=== PATIENT | male | born 1975 ===

== ENCOUNTER 2023-07-20 13:20 | Outpatient (AMB) | payer OTHER, SELFPAY ==
--- NOTE | 2023-07-20 13:25 | HO.SPINEOV ---
Intake Intake Visit Reasons: neck discomfort Intake Note: Mr. Corbett is here today c/o recurrent neck pain. Hx of ACDF 05/29/[address] Jones. No new imaging since 01/2022. Product Grader Required: No Allergies aspirin [ASPIRIN] Allergy (Unknown, Verified 07/20/23 13:33) SWELLING ibuprofen [IBUPROFEN] Allergy (Unknown, Verified 07/20/23 13:33) SWELLING Assessment & Plan Assessment & Plan (1) Cervical radiculopathy: Code(s): M54.12 - Radiculopathy, cervical region Plan HPI: Roberto is a pleasant 48 y/o male who comes in today with a a CC of neck pain. He is known to our service and had a C6-7 ACDF completed in 2019 at [facility]. He reports that he has had continued neck pain since then. He states that he felt as though his symptoms had resolved until about 6 months ago when he began trying to exercise at the gym again and felt his left-sided radiculopathy return. When describing his radiation of symptoms he states the pain starts in his neck shoots down his left arm diffusely on terminates in his left 4th and 5th phalanges (h). He states he can not identify an inciting incident that specifically cause this pain to a rise again 6 months ago, but correlates it with his return to exercise. Of note he works as a licensed aircraft maintenance engineer in the [employer] and has to work overhead most of the day. He states that his current symptoms are very similar to those that he had prior to his initial surgery. Of note he also reports continued progressive weakness in his left arm, and feels as though he gets weaker as time goes on. Exam: On examination today he has noticeable triceps atrophy on the left arm when compared to the right. In regards to his left upper extremity his strength is 4/5 in his deltoid, triceps & biceps and 5/5 with wrist flexion / extension and interossei. His right upper extremity and his bilateral lower extremities are 5/5 strength. His sensation is grossly intact. His reflexes are 2+ intact. (-) Gonzalez's bilaterally, (-) clonus bilaterally, (-) straight leg raise bilaterally. Patient is able to ambulate well and rises from a seated position without difficulty. Imaging: MRI imaging could not be reviewed as I have no access to [facility] records, and the patient did not bring his MRI disc. The MRI is 2 years old and already was reviewed by [facility]UY[facility] Sage as evidenced by previous records at [facility]. Plan: The patient is suffering from continued and reportedly progressive weakness in his left upper extremity. It is now to the point where he has difficulty completing his daily tasks at work in the [employer]. He came in today extremely concerned that he needed to take a PT test soon and feels as though he does not have the ability to pass this test given his continued weakness. After his examination I completed his PT test exemption form, stating that he was being worked up for cervical spine pathology and will have a MRI ordered to rule out further nerve root impingement. Total amount of time spent in this visit was 32 minutes in discussion of symptoms, MRI imaging results and subsequent plan of care. Miguel Ángel Jones MD,PhD [facility] Orders: Orders XR cervical spine 4V 07/20/23 M54.12 - Radiculopathy, cervical region MR cervical spine wo con Today M54.12 - Radiculopathy, cervical region Coding Level of Care Code Est Pt Level 4 (01513) Diagnoses Cervical radiculopathy M54.12 Time Spent (min) 32
== END 2023-07-20 14:02 | disposition home or self-care (01) ==
PROVIDERS: PCP Internal Medicine; Visit Provider Physician Assistant
DX: M54.12 Radiculopathy, cervical region (principal)
CPT/HCPCS: 99214

== ENCOUNTER 2023-07-20 13:20 | Outpatient (REF) | payer OTHER, SELFPAY ==
--- NOTE | ~2023-07-20 | XR_ITS ---
EXAMINATION: XR CERVICAL SPINE CLINICAL INFORMATION: Radiculopathy COMPARISON: None available. TECHNIQUE: 5 views of the cervical spine were obtained. FINDINGS: Normal alignment of the cervical spine. No change in alignment with flexion or extension positioning Cervical vertebral body heights are maintained. Patient is status post anterior fusion of C6 on C7. Unremarkable hardware. Other disc spaces are relatively well-maintained. Small to moderate-sized osteophytes are noted within the mid to lower cervical spine. No prevertebral soft tissue swelling. Visualized lung apices are well aerated. XR/XR cervical spine 4V IMPRESSION: 1. Postsurgical changes of the cervical spine. 2. No radiographic evidence of instability.
== END 2023-07-20 13:21 | disposition home or self-care (01) ==
LOC: HO.HOSX 13:20
PROVIDERS: PCP Internal Medicine; Visit Provider Physician Assistant
DX: M54.12 Radiculopathy, cervical region (principal)
CPT/HCPCS: 72050; 99212

== ENCOUNTER 2023-08-04 15:03 | Outpatient (REF) | payer OTHER, SELFPAY ==
--- NOTE | ~2023-08-04 | MR_ITS ---
EXAMINATION: MR CERVICAL SPINE WITHOUT CONTRAST CLINICAL INFORMATION: Cervical radiculopathy. COMPARISON: Cervical spine radiographs from 07/20/2023. TECHNIQUE: MRI of the cervical spine was obtained using routine sequences without contrast. FINDINGS: Interbody fusion device in place at C6-C7. Straightening of the normal cervical lordosis. There is advanced degenerative disc disease at C4-C5. There is moderate degenerative disc disease at all additional levels from C2-C6. Associated mixed Modic type discogenic and plate changes including Modic type I discogenic edema from C5-C7. There is mild marrow edema within the atlantoaxial articulations. No additional suspicious marrow edema. The vertebral body heights are well-maintained. There is T2 hyperintensity centrally within the cord at the level of C5-C6 associated with mild cord atrophy. No additional spinal cord signal abnormalities. Limited evaluation of the soft tissues of the neck without demonstrated abnormalities. The flow voids of the major cervical vessels are maintained. Normal appearance of the cervicomedullary junction and visualized posterior fossa. SPINAL LEVELS: C2-C3: Mild disc-osteophyte complex. There is no uncovertebral joint arthropathy. There is mild left and no right facet joint arthropathy. There is no neural foraminal stenosis. There is no spinal canal stenosis. C3-C4: Mild disc-osteophyte complex. There is moderate to severe left and moderate right uncovertebral joint arthropathy. There is mild bilateral facet joint arthropathy. There is severe left and moderate right neural foraminal stenosis. There is moderate spinal canal stenosis. C4-C5: Moderate disc-osteophyte complex eccentric to the left. There is severe left and moderate right uncovertebral joint arthropathy. There is moderate right worse than left facet joint arthropathy. There is severe left and moderate right neural foraminal stenosis. There is moderate to severe spinal canal stenosis. C5-C6: Prominent disc-osteophyte complex. There is severe right worse than left uncovertebral joint arthropathy. There is moderate bilateral facet joint arthropathy. There is severe right and moderate left neural foraminal stenosis. There is moderate to severe spinal canal stenosis. C6-C7: Fused at this level. There is moderate left and mild right uncovertebral joint arthropathy. There is mild to moderate bilateral facet joint arthropathy. There is moderate to severe left and mild to moderate right neural foraminal stenosis. There is mild spinal canal stenosis. C7-T1: Normal annular contour. There is mild left and no right uncovertebral joint arthropathy. There is no facet joint arthropathy. There is no neural foraminal stenosis. There is no spinal canal stenosis. MR/MR cervical spine wo con IMPRESSION: Interbody fusion device in place at C6-C7. Moderate to advanced multilevel degenerative spondyloarthropathy of the cervical spine as described in detail above. Most notably, there are moderate to severe spinal canal stenoses at C4-C5 and C5-C6. Moderate spinal canal stenosis at C3-C4. Mild spinal canal stenosis at C6-C7. Moderate to severe neural foraminal stenoses from C3-C7. There is T2 hyperintensity centrally within the cord at the level of C5-C6 associated with mild cord atrophy consistent with myelomalacia.
== END 2023-08-04 15:04 | disposition home or self-care (01) ==
LOC: HO.MRI 15:03
PROVIDERS: PCP Internal Medicine; Visit Provider Physician Assistant
DX: M54.12 Radiculopathy, cervical region (principal)
CPT/HCPCS: 72141

== ENCOUNTER 2023-08-25 08:10 | Outpatient (REF) | payer OTHER, SELFPAY ==
--- NOTE | 2023-08-25 | EMG_ITS ---
Left median and ulnar motor and sensory studies were performed. Left superficial radial and medial and lateral antecubital brachial sensory studies were performed. Paraspinal muscles were tested with a needle. IMPRESSION: 1. 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 2. Mild left ulnar neuropathy across the cubital tunnel. MD TING Noel/DEBO / [id number]
== END 2023-08-25 08:11 | disposition home or self-care (01) ==
LOC: HO.NEURO 08:10
PROVIDERS: PCP Internal Medicine; Visit Provider Physician Assistant
DX: M54.12 Radiculopathy, cervical region (principal)
CPT/HCPCS: 95886; 95910

== ENCOUNTER 2023-09-07 14:41 | Outpatient (AMB) | payer OTHER, SELFPAY ==
--- NOTE | 2023-09-07 15:05 | HO.SPINEOV ---
Intake Intake Visit Reasons: F/u EMG Intake Note: Mr. Corbett is here today to F/u on EMG Juvenile Corrections Officer Required: No Allergies aspirin [ASPIRIN] Allergy (Unknown, Verified 07/20/23 13:33) SWELLING ibuprofen [IBUPROFEN] Allergy (Unknown, Verified 07/20/23 13:33) SWELLING Assessment & Plan Assessment & Plan (1) Ulnar nerve entrapment at elbow: Code(s): G56.20 - Lesion of ulnar nerve, unspecified upper limb (2) Degenerative cervical spinal stenosis: Code(s): M48.02 - Spinal stenosis, cervical region Plan Dear colleague, On 09/07/2023 I saw Roberto Corbett. He was recently seen by my PA ordered an EMG of the upper extremities. In summary, the patient previously had an anterior diskectomy fusion done C6-7 for left-sided arm pain and weakness. He returned with complaints of numbness in his 4th and 5th digit on the left side, triceps atrophy and right-sided neck pain when turning his neck. The EMG shows moderate ulnar nerve compression and mild median nerve compression. A repeat MRI of the cervical spine is basically unchanged from 2021 with again showing mild myelomalacia behind C5-C6.. On exam there are no signs of cervical myelopathy. There is significant atrophy of the triceps. I explained to the patient that the triceps atrophy is the result of his original left C7 nerve compression for which he underwent surgery. Secondly, he most likely suffers from an ulnar neuropathy. Thirdly, I would not offer him any cervical intervention at this time in the absence of signs of cervical myelopathy despite the significant multilevel stenosis seen on the MRI. He is released for full duty and physical activity. I would like to follow up with him in 6 months. I spent 40 minutes in his clinic to review imaging, testing and discussing plan of care. Andrez Jones MD, PhD Spine Fellowship Trained Neurosurgeon Director, [facility] Coding Level of Care Code Est Pt Level 4 (66117) Diagnoses Ulnar nerve entrapment at elbow G56.20 Degenerative cervical spinal stenosis M48.02
== END 2023-09-07 15:32 | disposition home or self-care (01) ==
PROVIDERS: PCP Internal Medicine; Visit Provider Neurological Surgery
DX: G56.20 Lesion of ulnar nerve, unspecified upper limb (principal); M48.02 Spinal stenosis, cervical region
CPT/HCPCS: 99214

== ENCOUNTER → 2023-09-07 14:41 | Outpatient (BNVA) | payer OTHER, SELFPAY | PROVIDERS: PCP Internal Medicine; Visit Provider Neurological Surgery | DX: G56.20 Lesion of ulnar nerve, unspecified upper limb (principal); M48.02 Spinal stenosis, cervical region | CPT/HCPCS: 99212 ==

== ENCOUNTER 2024-04-13 14:14 | Outpatient (AMB) | payer OTHER, SELFPAY ==
--- NOTE | 2024-04-13 14:47 | HO.SPINEOV ---
Intake Visit Reasons: 6 month follow up Intake Note: Mr. Corbett is here today for a 6 month F/u. Sample Maker Original Required: No Allergies aspirin [ASPIRIN] Allergy (Unknown, Verified 04/13/24 14:48) SWELLING ibuprofen [IBUPROFEN] Allergy (Unknown, Verified 04/13/24 14:48) SWELLING Assessment & Plan Assessment & Plan (1) Degenerative cervical spinal stenosis: Code(s): M48.02 - Spinal stenosis, cervical region Category: Medical Plan Dear colleague, On 04/13/2024 I saw for follow-up Roberto Corbett for six-month checkup. As you know, he has triceps atrophy from previous nerve compression. He states that his symptoms are stable. He has intermittent right-sided neck pain. Extreme extension was neck may produce numbness in his hands. On exam, there are no signs of myelopathy. I discharged him from further follow-up and told him to visit me if any changes in symptoms occur. Thank you for allowing me take care of this patient. Andrez Jones MD, PhD Spine Fellowship Trained Neurosurgeon Director, [facility] [place] Coding Level of Care Code Est Pt Level 2 (38579) Diagnoses Degenerative cervical spinal stenosis M48.02
== END 2024-04-13 16:07 | disposition home or self-care (01) ==
LOC: HO.HNS 14:15
PROVIDERS: PCP Internal Medicine; Visit Provider Neurological Surgery
DX: M48.02 Spinal stenosis, cervical region (principal)
CPT/HCPCS: 99212

== ENCOUNTER → 2024-04-13 14:14 | Outpatient (BNVA) | payer OTHER, SELFPAY | PROVIDERS: PCP Internal Medicine; Visit Provider Neurological Surgery | DX: M48.02 Spinal stenosis, cervical region (principal) | CPT/HCPCS: 99212 ==